=== PATIENT | male | born 1965 | race Caucasian/White ===

== ENCOUNTER 2017-04-09 10:55 | Emergency (ER) | payer BC ==
--- NOTE | 2017-04-09 11:07 | ED.PDOC ---
History of Present Illness - General Chief Complaint: Neuro Symptoms/Deficits Stated Complaint: left side weakness/facial numbness Time Seen by Provider: 04/09/17 11:04 Source: patient, RN notes reviewed, Vital Signs reviewed Exam Limitations: no limitations - History of Present Illness Initial Comments: Patient comes in with c/o of L facial and arm numbness that began ~45minutes prior to arrival @ ER. No PORTILLO, no weakness. No chest pain or SOB. No similar episodes in the past. Timing/Duration: 1 hour Severity: moderate Improving Factors: nothing Worsening Factors: nothing Associated Symptoms: vision changes - Initially had blurrred vision Allergies/Adverse Reactions: Allergies NO KNOWN ALLERGY Allergy (Verified 04/09/17 11:56) Review of Systems - Review of Systems Constitutional: States: no symptoms reported. Denies: chills, fever, malaise, weakness EENTM: States: blurred vision Respiratory: States: no symptoms reported. Denies: cough, short of breath Cardiology: States: no symptoms reported. Denies: chest pain, palpitations, syncope Gastrointestinal/Abdominal: States: no symptoms reported Musculoskeletal: States: no symptoms reported Skin: States: no symptoms reported Neurological: States: see HPI, numbness - L face and arm. Denies: headache, paresthesia, pre-existing deficit, tingling, weakness Endocrine: States: no symptoms reported All other Systems: No Change from Baseline Family Medical History - Family History Mother Living Status: Unknown Physical Exam - Physical Exam General Appearance: Alert, Anxious, No apparent distress, Well Developed, Well Groomed, Well Hydrated, Well Nourished Eye Exam: bilateral normal ENT Exam: hearing grossly normal Neck: non-tender, full range of motion, supple, normal inspection Respiratory: lungs clear, normal breath sounds, no respiratory distress, no accessory muscle use Cardiovascular/Chest: regular rate, rhythm, no edema, no gallop, no JVD, no murmur Gastrointestinal/Abdominal: normal bowel sounds, non tender, soft Extremities Exam: non-tender, normal range of motion, no evidence of injury Mental Status: alert, oriented x 3 regrinder Exam: normal hearing, normal speech, PERRL, other - CN 2-12 grossly intact except decreased sensation L side of face/neck Motor/Sensory: no motor deficit, no pronator drift, sensory deficit - Decreased sensation to light touch on L side of face. Otherwise intact and equal bilaterally, other - Strength 5/5 BUE Skin Exam: normal color, warm/dry Progress - Progress Progress: 04/09/17 12:28 CT, labs and tox screen are all normal. Except for numbness he is neurologically intact. Will d/c home with instructions to rest and hydrate over the next couple of days. Return to ER if any new or concerning symptoms. He is agreeable with plan. - Results/Orders Results/Orders: Laboratory Tests 04/09/17 04/09/17 04/09/17 11:00 11:00 11:04 WBC 15.1 H RBC 4.77 Hgb 15.5 Hct 45.4 MCV 95.1 H MCH 32.5 H MCHC 34.2 RDW 12.5 Plt Count 244 MPV 8.4 Absolute Neuts (auto) 11.00 H Absolute Lymphs (auto) 3.30 Absolute Monos (auto) 0.60 Absolute Eos (auto) 0.10 Absolute Basos (auto) 0.10 Neutrophils % 72.9 Lymphocytes % 21.5 Monocytes % 4.3 Eosinophils % 0.9 L Basophils % 0.4 Sodium 138 Potassium 3.8 Chloride 105 Carbon Dioxide 25 Anion Gap 11.8 L BUN 13 Creatinine 0.75 BUN/Creatinine Ratio 17.3 Random Glucose 106 H Serum Osmolality 276.2 Calcium 9.3 Total Bilirubin 0.5 AST 21 ALT 12 Alkaline Phosphatase 66 Serum Total Protein 7.5 Albumin 4.6 Globulin 2.9 Albumin/Globulin Ratio 1.6 Urine Opiates Screen Negative Urine Barbiturates Negative Ur Phencyclidine Scrn Negative U Amphetamin/Meth Scrn Negative U Benzodiazepines Scrn Negative U Cocaine Metab Screen Negative U Cannabinoids Screen Negative - EKG/XRAY/CT EKG: Sinus, no ST T wave changes Comments: Rate 84 CT Ordered: Yes - Head: normal per Radiologist Stroke Information - Onset of Symptoms Symptoms of Stroke: Numbness Stroke Onset of Symptoms Date: 04/09/17 Stroke Onset of Symptoms Time: 10:45 - Contraindications Antithrombotic Contraindication: Treatment not indicated t-PA Contraindication: Drug Tx Not Indicated Departure - Departure Clinical Impression: Left facial numbness Time of Disposition: 12:31 Disposition: Discharge to Home or Self Care Condition: Good Departure Forms: ED Discharge - Pt. Copy, Patient Portal Self Enrollment, Work Release Form Instructions: DI for Numbness/tingling Diet: resume usual diet Activity: increase activity as tolerated Additional Instructions: Return to ER if new or worsening symptoms: PORTILLO, weakness, passing out, nausea/ vomiting, etc.
--- NOTE | 2017-04-09 11:37 | CT ---
EXAM DESCRIPTION: Head CLINICAL HISTORY: L sided facial numbness COMPARISON: None available TECHNIQUE: Non contrast cranial CT.This exam was performed according to our departmental dose-optimization program, which includes automated exposure control, adjustment of the mA and/or kV according to patient size and/or use of iterative reconstruction technique. FINDINGS: Ventricles and sulci are unremarkable. There is no hemorrhage or mass. There are no white matter abnormalities detected. The calvarium is unremarkable. The visualized paranasal sinuses and the mastoids are clear. IMPRESSION: Normal CT head Electronically signed by: Wesley Dhillon MD 04/09/2017 11:35 AM CDT
[2017-04-09] MEDS ORDERED: SODIUM CHLORIDE 0.9% 1000ML 1,000 ML IVS ONE (11:44)
[2017-04-09 12:22] VITALS: O2SAT 100
[2017-04-09 12:56] VITALS: BP 133/88; TEMP 98.2
== END 2017-04-09 12:45 | disposition home or self-care (01) ==
LOC: ER 10:55
DX: R20.0 Anesthesia of skin (principal)
CPT/HCPCS: 36415; 70450; 80053; 80307; 85025; 93005; J7030